=== PATIENT | female | born 1970 ===

== ENCOUNTER 2018-08-29 08:39 | Emergency (ER) | payer OTHER ==
[~2018-08-29] VITALS: Ht 167.6 cm; Wt 88.0 kg
[2018-08-29] MEDS ORDERED: PERCOCET 5-3251 EACH PO (10:38)
== END 2018-08-29 10:44 | disposition home or self-care (01) ==
LOC: ER 08:39
DX: S42.442A Displaced fracture (avulsion) of medial epicondyle of left humerus, initial encounter for closed fracture (principal); W18.39XA Other fall on same level, initial encounter; Y93.89 Activity, other specified; Y92.89 Other specified places as the place of occurrence of the external cause; Y99.8 Other external cause status

== ENCOUNTER 2018-09-02 05:08 | Day surgery (SDC) | payer OTHER ==
[~2018-09-02] VITALS: Ht 170.2 cm; Wt 87.5 kg
[~2018-09-02 05:08] MED LIST: PERCOCET 5-3251 EACH PO
== END 2018-09-02 15:00 | disposition home or self-care (01) ==
LOC: ER 05:08 → SEC-K 08:07 → ER 08:56
DX: S42.402A Unspecified fracture of lower end of left humerus, initial encounter for closed fracture (principal); X58.XXXA Exposure to other specified factors, initial encounter; Y93.89 Activity, other specified; Y92.89 Other specified places as the place of occurrence of the external cause; Y99.8 Other external cause status

== ENCOUNTER 2018-09-09 06:50 | Inpatient (IN) | payer OTHER ==
[~2018-09-09] VITALS: Ht 213.4 cm; Wt 5.0 kg
== END 2018-09-11 09:56 | disposition home or self-care (01) | DRG 494 ==
LOC: CIR.AMB 19:17 → SURG 19:35 → CIR.AMB 21:15 → EDSTATUS 21:15 → SURG 09-11 09:56
PROVIDERS: ADMIT Orthopaedic Surgery Hand Surgery
PROC: 0PSL0ZZ Reposition Left Ulna, Open Approach (ICD-10-PCS; 2018-09-09)
PROC: 0P8 Upper Bones, Division (ICD-10-PCS; 2018-09-09)
PROC: 0PSG04Z Reposition Left Humeral Shaft with Internal Fixation Device, Open Approach (ICD-10-PCS; principal; 2018-09-09 21:15)
DX: S42.492A Other displaced fracture of lower end of left humerus, initial encounter for closed fracture (principal)